=== PATIENT | male | born 1980 | race Caucasian/White ===

== ENCOUNTER 2018-04-16 18:49 | Emergency (ER) | payer OTHER, SELFPAY ==
[2018-04-16 18:56] VITALS: BP 122/79; PULSE 56; RESP 18; TEMP 36.9; O2SAT 99
--- NOTE | 2018-04-16 19:17 | DI.REPORT_ITS ---
SYMPTOM/DIAGNOSIS: ROTATIONAL INJURY, SWELLING AND PAIN LATERALLY. LEFT ANKLE: Soft tissue swelling is noted over the lateral malleolus. There is no evidence of a fracture or dislocation.
--- NOTE | 2018-04-16 19:19 | ED.GENADUL_ITS ---
Disposition Clinical Impression: Ankle sprain Disposition: HOME Condition: Fair Instructions: Ankle Sprain (ED) Additional Instructions: Encourage rest, ice, elevation. Tylenol and/or ibuprofen as needed for discomfort. Please continue with ankle brace until pain has subsided. I have asked her patient care director help facilitate follow-up with primary care within the next 2 weeks for reevaluation. Avoid activities that cause increased discomfort in the ankle. If you develop new or worsening symptoms seek care urgently once again. Referrals: Primary Care Provider [Outside] Forms: Work Release Medical Decision Making - Radiology Data Radiology results: report reviewed Radiologist reviewed x-ray. They note soft tissue swelling of the lateral malleolus. Soft tissue swelling seen anteriorly. No fracture identified. Ankle mortise is intact. No definite joint effusion seen. Talar dome and subtalar joints are normal. - Medical Decision Making Patient presents today with chief complaint of left ankle pain after rotational injury. Exam is concerning for swelling along the anterolateral aspect of the ankle. He does have good range of motion. Ambulating with antalgic gait. Pain is primarily over the ATFL as well as anterior over the ankle. Patient has not had anything as of yet for his discomfort. No other injury noted on exam. No pain over the fibular head or neck. No discoloration. Patient reported that he has struck his left forearm. Minimal soft tissue swelling on range of motion of the elbow, wrist, hand with no discomfort elicited. 5 out of 5 structures assembler strength compared to the contralateral side. Patient was given Tylenol and ibuprofen for his discomfort. Will obtain x-rays of X-ray without significant abnormality. No acute bony abnormality. Discussed these findings with the patient. Advised diagnosis ankle sprain. Encourage rest, ice, elevation. Tylenol and/or ibuprofen as needed for discomfort. Patient was placed in a lace up ankle brace to support her discomfort. We discussed new/worsening symptoms when to seek care urgently once again. Advised on activities to avoid. Will follow up with primary care in the next 2 weeks for reevaluation if pain persist but have asked her to facilitate follow-up. She does not currently have a primary care. All his questions and concerns were addressed and he is in agreement this plan. History of Present Illness - General Chief complaint: Orthopedic Stated complaint: ANKLE INJURY Time Seen by Provider: 04/16/18 19:17 Source: patient, RN notes reviewed Mode of arrival: ambulatory Limitations: no limitations - History of Present Illness Initial comments: Patient is a 37-year-old gentleman presenting today with chief complaint of left ankle pain. He reports a prior to arrival, he was at work on a rolling table. States that he fell off of the rolling table and suffered a rotational injury to the left ankle. Denies previous injuries to this ankle. Immediately noted swelling and pain along the anterior lateral aspect of the ankle. States that he was initially able to ambulate well with a slight limp but that pain has progressively been increasing so that now he is having difficulty with any weightbearing. States that he also struck his left forearm when he fell but is denying any pain at this time. He is endorsing some tissue swelling. No pain with range of motion of the elbow or wrist. Denies other injury at the time the incident. Did not strike his head, no loss of consciousness. - Related Data Unknown [No Known Home Meds] 12/24/13 Allergies Allergy/AdvReac Type Severity Reaction Status Date / Time No Known Allergies Allergy Unverified 12/24/13 21:30 Review of Systems Constitutional: no symptoms reported. denies: chills, fever, malaise Respiratory: no symptoms reported Musculoskeletal: as per HPI Skin: as per HPI Neurological: as per HPI, abnormal gait. denies: weakness, numbness, paresthesias Past Medical History - Past Medical History Medical history: no medical history Surgical history: no surgical history General Exam - General Limitations: no limitations General appearance: alert, in no apparent distress - Head Head exam: Present: atraumatic - Eye Eye exam: Present: normal apperance - Respiratory Respiratory exam: Absent: respiratory distress - Extremities Exam Extremities exam: Present: full ROM, tenderness, normal capillary refill, joint swelling. Absent: normal inspection (The patient's left lower extremity is significant for swelling patient anteriorly and over the lateral malleolus. Patient is good range of motion but this does elicit discomfort. Ligamentously stable. Pain elicited with palpation over the lateral malleolus although this discomfort is fairly minimal. Pain is worse over the ATFL and anteriorly. No discoloration. No sensory deficit. No pain with palpation over the calf or knee.) - Neurological Exam Neurological exam: Present: alert, abnormal gait (Antalgic gait) - Psychiatric Psychiatric exam: Present: normal affect, normal mood - Skin Skin exam: Present: warm, dry, intact, normal color Course Vital Signs - 24 hr 04/16/18 18:56 Temperature 36.9 C Pulse 56 L Respiratory 18 Rate Blood Pressure 122/79 Pulse Oximetry 99
[2018-04-16] MEDS: Acetaminophen 500 MG TAB 1000 MG PO (19:21)
[2018-04-16] MEDS: Ibuprofen 600 MG TAB PO (19:22)
--- NOTE | 2018-04-16 21:02 | DI.VRAD_ITS ---
EXAM: XR Left Ankle Complete, 3 or more Views EXAM DATE/TIME: 04/16/2018 7:18 PM CLINICAL HISTORY: 37 years old, male; Pain; Ankle; Left; Patient HX: Rotational injury, swelling and pain laterally TECHNIQUE: XR Left ankle 3 or more views. COMPARISON: No relevant prior studies available. FINDINGS: There is soft tissue swelling over the lateral malleolus. There is soft tissue swelling seen anteriorly. No fractures are identified. The ankle mortise is intact. No definite joint effusion is seen. The talar dome and subtalar joint are normal. IMPRESSION: 1. Soft tissue swelling. 2. No evidence of fracture. Dictated and Authenticated by: Milton Wesley MD. Ordering:PARDEEP KINGSLEY MD
[2018-04-16 21:21] VITALS: BP 122/79; PULSE 56; RESP 18; TEMP 36.9; O2SAT 99
--- NOTE | 2018-04-17 14:26 | PDOC.ERCMPRO ---
Care Management Progress Note 04/17-Lizzeth PAZ requested assistance with a PCP (use to be [facility]) in 1-2 weeks for ankle sprain. Referral faxed to [facility] today.
--- NOTE | 2018-04-17 14:28 | CMPROGNOTE_ITS ---
Care Management Progress Note 04/17-Lizzeth PAZ requested assistance with a PCP (use to be [facility]) in 1 -2 weeks for ankle sprain. Referral faxed to [facility] today.
== END 2018-04-16 21:22 | disposition home or self-care (01) ==
PROVIDERS: Emergency Provider Student in an Organized Health Care Education/Training Program; PCP Nurse Practitioner Family
DX: S93.402A Sprain of unspecified ligament of left ankle, initial encounter (principal); W17.89XA Other fall from one level to another, initial encounter; M79.632 Pain in left forearm
CPT/HCPCS: 29515; 99284; 73610; 99282; L1902

== ENCOUNTER 2019-01-15 22:17 | Emergency (ER) | payer OTHER, SELFPAY ==
[2019-01-15 22:27] VITALS: BP 129/82; PULSE 58; RESP 16; TEMP 36.7; O2SAT 100
--- NOTE | 2019-01-15 22:53 | W.ED.GENAD ---
Discharge Plan Disposition Patient Disposition: HOME Condition: Stable Discharge Details Chief Complaint: DentalOral Clinical Impression: Pain, dental Primary Care Provider: Wendy Stroud ED Provider: Ishmael Ann Home Meds and New Rx's Prescriptions: New amoxicillin 500 mg capsule 500 mg PO BID Qty: 20 RF: 0 Discharge Instructions Instructions: Toothache (ED) Additional Instructions: Please take the diuretic as directed. Please take 1000 mg of Tylenol every 6 hours and 800 mg of ibuprofen every 6 hours for control of your pain. Please follow-up closely with your dentist for reassessment and potential tooth removal. If you notice any worsening of your symptoms, or any new symptoms such as vomiting, diarrhea, fever, chills, shortness of breath, chest pain, numbness, weakness, or fainting , please return immediately to the emergency department for reevaluation. Please follow up with your primary care provider as soon as possible for reassessment and reevaluation. As always, it was a pleasure participating in your medical care today. Referrals: Wendy Stroud [Primary Care Provider] - Discharge Data Discharge Date/Time-TO BE ENTERED AT DEPARTURE: 01/15/19 23:27 Medical Decision Making This is a pleasant 38-year-old male who presents for evaluation of right upper molar dental pain. Symptoms have been present for the last few days, he has an appointment coming up in 72 hours with his dentist. Pain is slightly improved with ibuprofen. Exam demonstrates no evidence of significant abscess or fluctuance requiring drainage. With notable dental caries I do think he has pulpitis, most likely secondary to infection from his chronic caries, patient has been given his first dose of amoxicillin here. Dental block was performed and he had complete resolution of his pain. Recommend Tylenol Motrin at home, continued amoxicillin, and close follow-up with his dentist. I have extensively reviewed the treatment plan and discharge instructions with the patient. I have addressed all patient concerns at this time. The patient was made aware of what symptoms to monitor for that would warrant a return to the emergency department. Discussed the plan with the patient, they demonstrate verbal understanding and agreement with our assessment and plan at this time. Time out was taken to identify the correct patient, procedure, and site. Risks and benefits were discussed with the patient and consent was obtained. Direct pressure was held over the area prior to the procedure to reduce painful injection. 5 cc?s of Lidocaine 1% and Bupivacaine 0.25% was instilled into the right posterior superior alveolar space with a 27 gauge needle.Complete analgesia was obtained. The patient tolerated the procedure. There were no complications. HPI General Date/Time Provider Initiated Documentation: 01/15/19 22:49. HPI Narrative: This is a 38-year-old male with no significant past medical history who presents for dental pain. He has right upper posterior molar has been causing him pain for the last few days. He is scheduled an appointment with a dentist however he cannot get in until 72 hours from now on Saturday. He presents for evaluation of better control of his pain and potential antibiotics. He denies any fever, chills, headache or neck pain. He does admit to a history of dental caries. He has taken 400 mg of ibuprofen over 6 hours ago and this did slightly help his pain. He denies any other complaints modifying factors at this time. Related Data Home Medications Medication Instructions Recorded Confirmed amoxicillin 500 mg PO BID #20 cap 01/15/19 Previous Rx's Medication Instructions Recorded amoxicillin 500 mg PO BID #20 cap 01/15/19 Allergies Allergy/AdvReac Type Severity Reaction Status Date / Time No Known Allergies Allergy Unverified 01/15/19 22:35 General Stated Complaint: DentalOral JULISA: 4 Review of Systems Review of Systems All systems reviewed & are unremarkable except as noted in HPI and below PFSH Social History Smoking/Tobacco Use Status: Current every day Tobacco Type: cigarettes Tobacco: How many years used: 15 Drug use: Socially Substance use type: marijuana Do you feel safe at home: Yes Do you feel safe in your relationship?: Yes Exam Narrative Exam Narrative: 1.Const: Well-nourished, Well-developed, appearing stated age 2.Eyes: PERRL, no conjunctival injection, and symmetrical lids. 3.ENT: Atraumatic external nose and ears. Moist MM. Neck: Symmetric, trachea midline, No thyromegaly. Notably poor dentition, cavities noted in the right upper posterior molars. No evidence of periapical abscess, swelling or fluctuance. No evidence of tonsillar abscess. 4.CVS: +S1/S2, No murmurs or gallops. Peripheral pulses 2+ and equal in all extremities. Brisk capillary refill in all extremities. 5.RESP: Unlabored respiratory effort. Clear to auscultation bilaterally. No wheezes rales or rhonchi 6.GI: Soft, Nontender/Nondistended, No hepatosplenomegaly. No guarding or rebound. 7.MSK: Normocephalic/Atraumatic, Extremities w/o deformity or ttp No cyanosis or clubbing, Normal movement of all extremities 8.Skin: Warm, Dry. No rashes or lesions. 9.Neuro: quality assurance intern II-XII grossly intact. Sensation grossly intact, no focal neurologic deficits. 10.Psych: (AAO) x3. Appropriate mood and affect Course Vital Signs Temperature 36.7 C 01/15/19 22:27 Pulse 58 L 01/15/19 22:27 Respiratory Rate 16 01/15/19 22:27 Blood Pressure 129/82 01/15/19 22:27 Pulse Oximetry 100 01/15/19 22:27 Temperature 36.7 C 01/15/19 22:27 Temperature Source Temporal Artery Scan 01/15/19 22:27 Pulse 58 L 01/15/19 22:27 Respiratory Rate 16 01/15/19 22:27 Respiratory Effort 01/15/19 22:27 Blood Pressure 129/82 01/15/19 22:27 Pulse Oximetry 100 01/15/19 22:27 Oxygen Delivery Method Room Air 01/15/19 22:27 Oxygen Flow Rate 0 01/15/19 22:27 Pain Level 10 01/15/19 22:33
[2019-01-15] MEDS: Amoxicillin 500 MG CAP (23:23)
[2019-01-15] MEDS: Bupivacaine 0.5% Pres-Free 30 ML VIAL (23:23)
== END 2019-01-15 23:27 | disposition home or self-care (01) ==
PROVIDERS: Emergency Provider Student in an Organized Health Care Education/Training Program; PCP Nurse Practitioner Family
DX: K08.89 Other specified disorders of teeth and supporting structures (principal)
CPT/HCPCS: 64400

== ENCOUNTER 2019-01-19 23:25 | Emergency (ER) | payer OTHER, SELFPAY ==
[2019-01-19 23:34] VITALS: PULSE 58; RESP 16; TEMP 36.5; O2SAT 100
[2019-01-19] MEDS: Bupivacaine 0.5% Pres-Free 30 ML VIAL (23:52)
[2019-01-19] MEDS: Lidocaine 1% Multi-Dose 50 ML VIAL (23:53)
--- NOTE | 2019-01-20 00:14 | ED.GENADUL_ITS ---
Discharge Plan Disposition Patient Disposition: HOME Condition: Stable Discharge Details Chief Complaint: DentalOral Clinical Impression: Pain, dental Primary Care Provider: Wendy Stroud ED Provider: More Rodríguez Home Meds and New Rx's Prescriptions: Continued amoxicillin 500 mg capsule 500 mg PO BID Qty: 20 RF: 0 Discharge Instructions Instructions: Toothache (ED) Additional Instructions: Take your antibiotics until finished. Alternate tylenol and motrin as needed and directed for pain. Follow up with your scheduled appointment with your dentist on Saturday. Return immediately to the emergency department with any worsening or new concerning symptoms. Discharge Data Discharge Date/Time-TO BE ENTERED AT DEPARTURE: 01/20/19 00:20 Discharge Physician: More Rodríguez Medical Decision Making 38-year-old male presents with dental pain for the past few days. Seen here 3 days ago for the same complaint and had a dental block and had relief for the past 2 days until pain returned today. Denies fever or difficulty swallowing. Has been taking his amoxicillin as directed. Has plan for dental extraction in 2 days. Multiple missing teeth and poor dentition throughout. Location of pain is noted in the premolar and molar areas in the right upper jaw. No abscess noted. No signs of airway compromise or Fidel's angina. Area of pain is noted to be in area of upper premolars/molars. A dental block was performed in the area of the infraorbital nerve and anterior superior alveolar nerve with a total of 4cc of half mixture each of 2cc of lidocaine 1% w/o epi and 2cc bupivacaine 0.25%. Patient tolerated the procedure well. Patient admitted to significant improvement of pain after dental block. Patient feels good to go home. He is instructed to finish his antibiotics as directed, alternate Tylenol Motrin for pain and follow-up with his dentist as scheduled in 2 days. He is instructed return here with any worsening or new concerning symptoms. Medical Records Medical records reviewed: Yes I reviewed the patient's medical records. HPI General Mode of arrival: ambulatory . Date/Time Provider Initiated Documentation: 01/19/19 23:26 . Limitations to Documentation: no limitations . Information obtained by: patient . HPI Narrative: Patient is a 38-year-old male with a history of dental caries and right upper tooth pain for the past week who presents with worsening dental pain. Patient was seen here 3 days ago for the same complaint and had a dental block and had relief of pain for 2 days following this but states the pain returned this evening. Patient is presenting here tonight for another dental block. He denies any fever. He states he has b een taking his antibiotics as directed. He states he saw a dentist today for follow-up and plan is to return there in 2 days for dental extraction. Related Data Home Medications Medication Instructions Recorded Confirmed amoxicillin 500 mg PO BID #20 cap 01/15/19 01/19/19 Previous Rx's Medication Instructions Recorded amoxicillin 500 mg PO BID #20 cap 01/15/19 Allergies Allergy/AdvReac Type Severity Reaction Status Date / Time No Known Allergies Allergy Unverified 01/15/19 22:35 General Stated Complaint: DentalOral JULISA: 4 Review of Systems Review of Systems All systems reviewed & are unremarkable except as noted in HPI and below Constitutional Reports as per HPI, Denies chills and Denies fever(s) Eyes Denies blurry vision ENT Reports dental pain, Denies dizziness, Denies sore throat and Denies throat swelling Cardiovascular Denies chest pain and Denies dyspnea Respiratory Denies cough and Denies dyspnea Gastrointestinal Denies abdominal pain, Denies diarrhea and Denies vomiting Genitourinary Denies hematuria and Denies dysuria Musculoskeletal Denies back pain and Denies numbness Integumentary/Breasts Denies lesions and Denies rash Neurologic Denies dizziness, Denies focal weakness and Denies numbness Allergic/Immunologic Denies throat swelling [facility] Medical History No significant past medical history (Acute) Surgical History No significant past surgical history (Acute) Social History Smoking/Tobacco Use Status: Current every day Tobacco Type: cigarettes Tobacco: How many years used: 15 Alcohol Intake: current Alcohol Intake frequency: holidays/special occasions only Drug use: Socially Substance use type: marijuana Do you feel safe at home: Yes Do you feel safe in your relationship?: Yes Exam Const General: cooperative, healthy appearing and no acute distress HENMT Head: normal to inspection Ears: hearing grossly normal bilaterally, external ears normal and TM's normal bilaterally General nose exam: external nose normal Face and sinus: normal facial exam Mouth: oral mucosae normal Teeth and gingiva: caries and poor dentition Teeth image: 1. Area of tenderness to palpation of teeth. No abscess. Mild-moderate edema and erythema. Teeth missing posterior to teeth with pain Eyes General: appearance normal, both eyes and all related structures Neck Neck: normal visual inspection, full ROM, no meningeal signs, trachea midline an d supple Lymphatic: no lymphedema noted Resp Effort & Inspection: normal respiratory effort and able to speak in complete sentences Cardio Rate: regular rate Skin General skin exam: no rashes or lesions noted Neuro General: alert, awake and oriented x3 Motor: muscle tone normal throughout Extrem General: normal to inspection and full ROM Psych Appearance: grossly normal Affect: normal affect Course Vital Signs Temperature 97.7 F 01/19/19 23:34 Pulse 58 L 01/19/19 23:34 Respiratory Rate 16 01/19/19 23:34 Pulse Oximetry 100 01/19/19 23:34 Temperature 97.7 F 01/19/19 23:34 Temperature Source Temporal Artery Scan 01/19/19 23:34 Pulse 58 L 01/19/19 23:34 Respiratory Rate 16 01/19/19 23:34 Respiratory Effort 01/19/19 23:34 Blood Pressure Position Supine 01/19/19 23:34 Pulse Oximetry 100 01/19/19 23:34 Oxygen Delivery Method Room Air 01/19/19 23:34 Oxygen Flow Rate 0 01/19/19 23:34 Procedures Nerve Block Nerve Block 1: Time out performed: Yes Local Anesthetic: Lidocaine 1% and Bupivicaine 0.25% Amount of anesthesia used (mL): 4 Side: right Intraoral Nerve Block: superior alveolar and infraorbital Procedure Successful: Yes Patient Tolerated Procedure: well Complications: none
== END 2019-01-20 00:20 | disposition home or self-care (01) ==
PROVIDERS: Emergency Provider Physician Assistant; PCP Nurse Practitioner Family
DX: R68.84 Jaw pain (principal)
CPT/HCPCS: 64402; 99282

== ENCOUNTER 2020-01-18 14:08 | Emergency (ER) | payer OTHER, SELFPAY ==
[2020-01-18 14:16] VITALS: BP 118/85; PULSE 107; RESP 16; TEMP 37.5; O2SAT 97
--- NOTE | 2020-01-18 14:30 | DI.RAD_ITS ---
EXAM: XR THUMB LT CLINICAL HISTORY: distal thumb vs saw TECHNIQUE: COMPARISON: No exams were available for comparison FINDINGS: Three views were obtained. There is a soft tissue defect of the distal aspect of the thumb. No unde rlying fracture or other bony abnormality seen. IMPRESSION:
--- NOTE | 2020-01-18 15:05 | ED.GENADUL_ITS ---
Discharge Plan Disposition Patient Disposition: HOME Condition: Stable Discharge Details Chief Complaint: Laceration Clinical Impression: Laceration of thumb Primary Care Provider: Wendy Stroud ED Provider: Dominic Puente Home Meds and New Rx's Prescriptions: No Action No Known Home Meds RF: 0 Discharge Instructions Instructions: Laceration (ED) Additional Instructions: X-rays unremarkable. Keep the wound clean and dry. You may change antibiotic dressing daily. This will likely take 1-2 weeks to completely heal. [id number] Tylenol and/or Motrin as directed for discomfort. Watch for new or worsening symptoms and return to the ER for any concerns. I do recommend that you follow-up with your primary care provider in approximately 3-5 days for wound recheck Discharge Data Discharge Date/Time-TO BE ENTERED AT DEPARTURE: 01/18/20 16:26 Medical Decision Making Patient sustained a left thumb laceration on a table saw just prior to arrival. He is right-hand dominant. Tetanus up-to-date. Laceration is an avulsion in nature, there is nothing to repair. Bleeding is controlled. Laceration is extremely distal, likely no bone involvement however patient does have concerned that there could be bony involvement. Will obtain x-ray. X-ray obtained, no bony involvement. Wound was thoroughly cleaned and irrigated and then appropriately dressed with an antibiotic nonstick dressing. Patient has no additional questions or concerns and is comfortable discharge. Patient is neuro, vascular, tendon intact Medical Records Medical records reviewed: Yes I reviewed the patient's medical records. Imaging Data Radiologic Study: Attestation: I personally reviewed and interpreted this imaging study as follows: Imaging: X-Ray My impression: Left hand x-ray read by me as negative HPI General Mode of arrival: ambulatory . Date/Time Provider Initiated Documentation: 01/18/20 14:24 . Limitations to Documentation: no limitations . Information obtained by: patient . HPI Narrative: This is a 39-year-old gentleman, [id number], presenting for a left thumb laceration that occurred on a table saw at work just prior to arrival. He reports the pain is mild, dull in nature. Denies numbness, tingling, weakness, or any other injury. He reports that he is up-to-date on his tetanus status. Related Data Home Medications Medication Instructions Recorded Confirmed Unknown [No Known Home Meds] 01/18/20 01/18/20 Allergies Allergy/AdvReac Type Severity Reaction Status Date / Time No Known Allergies Allergy Unverified 01/18/20 14:19 General Stated Complaint: Laceration JULISA: 4 Review of Systems Constitutional Constitutional: Denies weakness Cardiovascular Cardiovascular: Denies chest pain and Reports dyspnea Respiratory Respiratory: Denies cough and Reports dyspnea Musculoskeletal Musculoskeletal: Denies arthralgias, Denies numbness and Denies tingling Integumentary/Breasts Skin/Breast: Denies rash Neurologic Neurologic: Denies numbness, Denies tingling and Denies weakness [facility] Medical History No significant past medical history (Acute) Surgical History No significant past surgical history (Acute) Social History Smoking/Tobacco Use Status: Current every day Tobacco Type: cigarettes Tobacco: How many years used: 15 Alcohol Intake: current Alcohol Intake frequency: holidays/special occasions only Drug use: Socially Substance use type: marijuana Do you feel safe at home: Yes Do you feel safe in your relationship?: Yes Exam Const General: cooperative, healthy appearing, comfortable and no acute distress Orientation: alert and awake HENAZ Head: normal to inspection, normocephalic and atraumatic Mouth: moist mucous membranes Eyes Conjunctivae: conjunctivae normal Neck Neck: normal visual inspection, trachea midline and supple Resp Effort & Inspection: normal respiratory effort and able to speak in complete sentences Cardio Rate: regular rate Rhythm: regular rhythm Skin General skin exam: no rashes or lesions noted Neuro General: patient alert, patient awake, moves all extremities and no focal motor deficits Sensory Exam: no sensory deficits noted Extrem Left upper extremity: hand Details: laceration thumb distal Details: irregular (1 cm), avulsion (It does involve the very distal nail), with motor nerve function intact and with sensation intact; not actively bleeding, no foreign body present, not contaminated and not involving muscle tissue Psych Appearance: grossly normal Mental Status: mental status grossly normal Course Vital Signs Vital signs: Vital Signs Temperature 37.5 C 01/18/20 14:16 Pulse 107 H 01/18/20 14:16 Respiratory Rate 16 01/18/20 14:16 Blood Pressure 118/85 01/18/20 14:16 Pulse Oximetry 97 01/18/20 14:16 Temperature 37.5 C 01/18/20 14:16 Temperature Source Skin 01/18/20 14:16 Pulse 107 H 01/18/20 14:16 Respiratory Rate 16 01/18/20 14:16 Respiratory Effort Non-Labored 01/18/20 14:16 Blood Pressure 118/85 01/18/20 14:16 Blood Pressure Position Sitting 01/18/20 14:16 Pulse Oximetry 97 01/18/20 14:16 Oxygen Delivery Method Room Air 01/18/20 14:16 Oxygen Flow Rate 0 01/18/20 14:16 Pain Level 6 01/18/20 14:16
== END 2020-01-18 16:26 | disposition home or self-care (01) ==
PROVIDERS: Emergency Provider Physician Assistant; PCP Nurse Practitioner Family
DX: S61.112A Laceration without foreign body of left thumb with damage to nail, initial encounter (principal); W31.2XXA Contact with powered woodworking and forming machines, initial encounter; Y99.0 Civilian activity done for income or pay
CPT/HCPCS: 99283; 73140

== ENCOUNTER 2024-04-09 23:50 | Emergency (ER) | payer SELFPAY ==
--- NOTE | 2024-04-09 23:47 | ED.GENADUL_ITS ---
Discharge Plan Disposition Patient Disposition: Home Condition: Good Discharge Details Clinical Impression: Accidental opiate poisoning Primary Care Provider: Unknown,Unknown ED Provider: Jordan Mason Home Meds and New Rx's Prescriptions: No Action No Known Home Meds Discharge Instructions Instructions: Opioid Overdose ED Additional Instructions: You were seen in the ED for a probable accidental opiate overdose likely related to your marijuana being laced. You were observed overnight with no further issues. Please be careful in the future. Return to ED for any concerns. HPI General Mode of arrival: EMS . Date/Time Provider Initiated Documentation: 04/10/24 00:04 . Limitations to Documentation: no limitations . Information obtained by: patient, EMS and RN notes reviewed . HPI Narrative: Patient presents to ED after presumed accidental opiate overdose. Patient reports that he had been drinking beer and smoking weed with some people. Decided that he was going to be going to bed. Does not have any idea what occurred in between then and being woken up and finding EMS present. Per EMS he received multiple rounds of Narcan given to him by bystanders. Patient denies any opiate use. States that he only smokes marijuana and drinks alcohol. He was able to walk in on his own. He has no real complaints at this time other than being a little nauseated. Denies any headache, chest pain, shortness of breath, abdominal pain. Related Data Home Medications ?Medication ?Instructions ?Recorded ?Confirmed Unknown [No Known Home Meds] 01/18/20 01/18/20 Allergies Allergy/AdvReac Type Severity Reaction Status Date / Time No Known Allergies Allergy Unverified 01/18/20 14:19 General JULISA: 4 Review of Systems Narrative: Per HPI Exam Narrative Exam Narrative: Const: Thin male in NAD. VS per triage. HEENT: NC/AT. Normal facial exam. Neck: Supple. Trachea midline. Lungs: Normal respiratory effort. Lungs are clear. Cor: RRR without murmur. Good radial pulses. Neuro: A+O x 3. Normal speech, mentation, gait. Cranial nerves II - XII grossly intact. No gross motor or sensory deficit. Ext: No C/C/E. Medical Decision Making Patient presenting after presumed accidental opiate overdose. He received multiple rounds of Narcan by bystanders. Suspect that the marijuana he was smoking was laced with fentanyl. Patient without any complaints of at this time. Will monitor for the next 1 to 2 hours. 01:45 - Patient has been fine here with monitoring. Has no where to go or ride at this point. Will hold until morning and then plan discharge. Quality:SDOH Health Related Social Needs: No Data to Display PFSH All Active Problems (Updated 04/10/24 @ 04:47 by Jordan Mason MD) Accidental opiate poisoning (Acute) Medical History (Updated 04/10/24 @ 04:47 by Jordan Mason MD) No significant past medical history Surgical History No significant past surgical history Social History Smoking/Tobacco Use Status: Current every day Tobacco Type: cigarettes Tobacco: How many years used: 15 Smoking risk assessment performed?: Yes Alcohol Intake: current Alcohol Intake frequency: holidays/special occasions only Drug use: Socially Substance use type: marijuana Details: does not know what he took tonight, admits to smoking weed Do you feel safe at home: Yes Do you feel safe in your relationship?: Yes
[2024-04-09 23:56] VITALS: O2SAT 95
[2024-04-09 23:57] VITALS: BP 132/89; PULSE 70; PULSE 76; RESP 18; TEMP 35.6; O2SAT 95
[2024-04-10] VITALS (27 sets, daily range): BP systolic 95–120; BP diastolic 71–93; PULSE 46–70; RESP 8–21; O2SAT 93–100
== END 2024-04-10 06:15 | disposition home or self-care (01) ==
PROVIDERS: Emergency Provider Emergency Medicine
DX: T40.601A Poisoning by unspecified narcotics, accidental (unintentional), initial encounter (principal)
CPT/HCPCS: 99283; 99282